=== PATIENT | female | born 1965 | race Caucasian/White ===

== ENCOUNTER 2023-08-09 06:39 | Outpatient (CLI) | payer BC, SELFPAY ==
--- NOTE | 2023-08-09 07:58 | W.ANESCHARGE ---
Anesthesia Charges Start Date/Time Anesthesia Start Date: 08/09/23 Anesthesia Start Time: 07:22 Stop Date/Time Anesthesia Stop Date: 08/09/23 Anesthesia Stop Time: 07:55
--- NOTE | 2023-08-09 08:48 | W.ANESCHARGE ---
Anesthesia Charges Start Date/Time Anesthesia Start Date: 08/09/23 Anesthesia Start Time: 07:22 Stop Date/Time Anesthesia Stop Date: 08/09/23 Anesthesia Stop Time: 07:55
== END 2023-08-09 06:40 | disposition home or self-care (01) ==
LOC: OP CLINIC 06:39
PROVIDERS: PCP Family Medicine; Visit Provider Surgery
DX: Z12.11 Encounter for screening for malignant neoplasm of colon (principal)
CPT/HCPCS: 00811; 00812; 45378; J2704

== ENCOUNTER 2023-10-04 11:16 | Outpatient (CLI) | payer BC, SELFPAY ==
--- NOTE | 2023-10-04 11:30 | MM_ITS ---
Patient: ARCHIE ESPINOSA Facility:?[facility] Patient ID:?[id number] Site Patient ID:?[id number] Site :?[id number] Study:?XRay-Breast Bilateral 3D W/CAD-10/04/2023 11:51:03 AM Ordering Physician:Ranjit Final Report: BILATERAL SCREENING MAMMOGRAM WITH COMPUTER-AIDED DETECTION AND TOMOSYNTHESIS TECHNIQUE: CC and MLO views were obtained. These mammographic images have been obtained using full-field digital technique. These mammographic images were interpreted with the benefit of computer-aided detection. Breast Tomosynthesis was used in this interpretation. COMPARISON FILM: 08/27/22, 08/12/20, 08/09/19. FINDINGS: There are scattered areas of fibroglandular density IMPRESSION: There is no radiographic evidence for malignancy. ASSESSMENT: BI-RADS Category 1: Negative RECOMMENDATION: Routine screening mammogram in 1 year. A lay language report of this examination will be provided to the patient. Yan Jade M.D. Diagnostic Radiologist [email or web address] LOBO/anima R& Transcribed: 8:15 p.m. ARIES/Dictated by: Yan Jade MD @ 10/06/2023 12:42:00 PM Signed by:?Yan Jade MD @10/06/2023 8:30:23 PM (Electronic Signature)
== END 2023-10-04 11:17 | disposition home or self-care (01) ==
LOC: MAMMO 11:16
PROVIDERS: PCP Family Medicine; Visit Provider Obstetrics & Gynecology
DX: Z12.31 Encounter for screening mammogram for malignant neoplasm of breast (principal)
CPT/HCPCS: 77063; 77067

== ENCOUNTER 2025-02-08 13:42 | Outpatient (CLI) | payer BC, SELFPAY ==
--- NOTE | 2025-02-08 14:00 | CRLHL7_ITS ---
For Patients: As a result of the Century Cures Act, medical imaging exams and procedure reports are released immediately into your electronic medical record. You may view this report before your referring provider. If you have questions, please contact your health care provider. INDICATION: BILATERAL SCREENING MAMMOGRAM, ASYMPTOMATIC 59 Y/O FEMALE COMPARISON: 10/04/2023, 08/27/2022, 08/12/2021 TECHNIQUE: Digital mammogram in CC and MLO projections including computer-aided detection (CAD) and tomosynthesis. BREAST COMPOSITION: There are scattered areas of fibroglandular density. FINDINGS: No suspicious findings. ASSESSMENT: BI-RADS 1 Negative RECOMMENDATION: Annual screening mammogram. A lay language report of this examination will be provided to the patient. Dictated by: Yan Jade MD @ 02/11/2025 11:49:12 (Electronically Signed)
== END 2025-02-08 13:43 | disposition home or self-care (01) ==
LOC: MAMMO 13:43
PROVIDERS: PCP Family Medicine; Visit Provider Obstetrics & Gynecology
DX: Z12.31 Encounter for screening mammogram for malignant neoplasm of breast (principal)
CPT/HCPCS: 77063; 77067